=== PATIENT | female | born 1940 | race African-American/Black ===

== ENCOUNTER 2019-05-05 12:47 | Inpatient (IN) | payer MEDICARE, OTHER ==
[~2019-05-05] VITALS: Ht 165.1 cm; Wt 69.1 kg
--- NOTE | 2019-05-05 12:50 | NUR ---
ED Nurse Note: Patient brought in by ambulance DONAVAN from [facility] c/o left flank pain radiating to her left neck since yesterday patient is alert awake x4 ambulatory with assistance. patient reports hx of removing right kidney due to kidney cancer. ramon on her abdomen was removed last week and skin is healing without complication, no oozing, redness, swelling noted patient is breathing even and unlabored.
[2019-05-05] MEDS ORDERED: HYDROCHLOROTH12.5 MG ORAL (12:51)
[2019-05-05] MEDS ORDERED: PROTONIX40 MG ORAL (12:51)
[2019-05-05] MEDS ORDERED: AVAPRO300 MG ORAL (12:51)
[2019-05-05] MEDS ORDERED: PRAVASTATIN SOD20 M1 ORAL (12:51)
[2019-05-05] MEDS ORDERED: XALATAN2.5 ML BOTH EYES (12:51)
[2019-05-05] MEDS ORDERED: OXYTROL FOR WO1 EACH TD (12:51)
[2019-05-05 12:57] VITALS: BP 144/71
[2019-05-05 14:04] LABS: BASOPHILS % (AUTO) 0.8 % (0.0-2.0); HEMOGLOBIN 10.3 G/DL (12.0-16.0); LYMPHOCYTES % (AUTO) 26.4 % (20.0-45.0); MEAN CORPUSCULAR VOLUME 81 FL (80-99); NEUTROPHILS % (AUTO) 56.8 % (45.0-75.0); PLATELET COUNT 290 K/UL (150-450); RED BLOOD COUNT 4.06 M/UL (4.20-5.40); RED CELL DISTRIBUTION WIDTH 15.9 % (11.6-14.8); WHITE BLOOD COUNT 9.3 K/UL (4.8-10.8)
[2019-05-05 14:22] LABS: ANION GAP 12 mmol/L (5-15); BLOOD UREA NITROGEN 40 mg/dL (7-18); CALCIUM 9.9 MG/DL (8.5-10.1); CARBON DIOXIDE 24 MMOL/L (21-32); CHLORIDE 104 MMOL/L (98-107); CREATININE 2.3 MG/DL (0.55-1.30); POTASSIUM 4.1 MMOL/L (3.5-5.1); SODIUM 140 MMOL/L (136-145)
[2019-05-05 14:38] LABS: ALANINE AMINOTRANSFERASE 18 U/L (12-78); ALBUMIN 2.7 G/DL (3.4-5.0); ALBUMIN/GLOBULIN RATIO 0.5 (1.0-2.7); ALKALINE PHOSPHATASE 94 U/L (46-116); ASPARTATE AMINO TRANSFERASE 15 U/L (15-37); BILIRUBIN,TOTAL 0.3 MG/DL (0.2-1.0); CKMB < 0.5 NG/ML (0.0-3.6); CREATINE KINASE 12 U/L (26-308)
--- NOTE | 2019-05-05 15:54 | NUR ---
ED Nurse Note: called 2E and spoke with Kam, the nurse has not been assigned yet. will call back as soon as possible/
--- NOTE | 2019-05-05 15:58 | Emergency Room Report ---
History of Present Illness General Chief Complaint: Generalized Weakness Source: Patient, Medical Record Present Illness HPI 78-year-old female presents to ED for evaluation. Complaining of left-sided chest pain which started a few days ago. Pain is dull, 5 out of 10, nonradiating. Comes and goes. Denies shortness of breath. No other aggravating relieving factors. Denies any other associated symptoms Allergies: Coded Allergies: SULFA (SULFONAMIDE ANTIBIOTICS) (Unverified Allergy, Unknown, 05/05/19) Patient History Past Medical History: HTN, psych hx, other - breast cancer Past Surgical History: none Pertinent Family History: none Social History: Denies: smoking, alcohol use, drug use Now: No Immunizations: UTD Reviewed Nursing Documentation: PMH: Agreed; PSxH: Agreed Nursing Documentation-PMH Past Medical History: No History, Except For Hx Hypertension: Yes Hx Diabetes: Yes Hx Cancer: Yes - BREAST History Of Psychiatric Problem: Yes - ANXIETY Review of Systems All Other Systems: negative except mentioned in HPI Physical Exam Vital Signs Date Time Temp Pulse Resp B/P (MAP) Pulse Ox O2 Delivery O2 Flow Rate FiO2 05/05/19 12:43 76 16 114/65 (81) 96 Room Air 05/05/19 12:57 98.1 Sp02 EP Interpretation: reviewed, normal General Appearance: no apparent distress, alert, GCS 15, non-toxic Head: normocephalic, atraumatic Eyes: bilateral eye normal inspection, bilateral eye PERRL ENT: hearing grossly normal, normal pharynx, no angioedema, normal voice Neck: full range of motion, supple/symm/no masses Respiratory: lungs clear, normal breath sounds, speaking full sentences, other - L sided Cardiovascular #1: regular rate, rhythm, no edema Cardiovascular #2: 2+ carotid (R), 2+ carotid (L), 2+ radial (R), 2+ radial (L) , 2+ dorsalis pedis (R), 2+ dorsalis pedis (L) Gastrointestinal: normal bowel sounds, non tender, soft, non-distended, no guarding, no rebound Rectal: deferred Genitourinary: normal inspection, no CVA tenderness Musculoskeletal: back normal, gait/station normal, normal range of motion, non- tender Neurologic: alert, oriented x3, responsive, motor strength/tone normal, sensory intact, speech normal Psychiatric: judgement/insight normal, memory normal, mood/affect normal, no suicidal/homicidal ideation Reflexes: 3+ bicep (R), 3+ bicep (L), 3+ tricep (R), 3+ tricep (L), 3+ knee (R) , 3+ knee (L) Lymphatic: no adenopathy Medical Decision Making Diagnostic Impression: Primary Impression: ACS (acute coronary syndrome) ER Course Hospital Course 78-year-old male presents ED complaining of left-sided chest pain, Differential diagnoses include: DE/unstable angina, contusion, muscle strain, PTX, rib fracture Clinical course Patient placed on stretcher. on jacquard loom card changer. After initial history and physical I ordered labs, EKG, chest x-ray labs reviewed- no leukocyosis, hb/hct stable, electrolytes ok, trop negative EKG - NSR, no acute ischemic changes interpreted by me Chest x-ray- no acute process given comorbidities and age, concern for atypical chest pain. given aspirin Case discussed with Dr. No and he agreed to accept the patient to his service for further care and support I. I feel this is a highly complex case requiring extensive working including EKG/Rhythm strip, Xray/CT/US, Blood/urine lab work, repeat exams while in ED, and administration of strong opiates/narcotics for pain control, admission to hospital or close patient follow up. Diagnosis - ACS admitted to telemetry in serious condition Labs Test 05/05/19 13:40 White Blood Count 9.3 K/UL (4.8-10.8) Red Blood Count 4.06 M/UL (4.20-5.40) Hemoglobin 10.3 G/DL (12.0-16.0) Hematocrit 33.0 % (37.0-47.0) Mean Corpuscular Volume 81 FL (80-99) Mean Corpuscular Hemoglobin 25.3 PG (27.0-31.0) Mean Corpuscular Hemoglobin Concent 31.1 G/DL (32.0-36.0) Red Cell Distribution Width 15.9 % (11.6-14.8) Platelet Count 290 K/UL (150-450) Mean Platelet Volume 6.3 FL (6.5-10.1) Neutrophils (%) (Auto) 56.8 % (45.0-75.0) Lymphocytes (%) (Auto) 26.4 % (20.0-45.0) Monocytes (%) (Auto) 13.0 % (1.0-10.0) Eosinophils (%) (Auto) 3.0 % (0.0-3.0) Basophils (%) (Auto) 0.8 % (0.0-2.0) Sodium Level 140 MMOL/L (136-145) Potassium Level 4.1 MMOL/L (3.5-5.1) Chloride Level 104 MMOL/L (98-107) Carbon Dioxide Level 24 MMOL/L (21-32) Anion Gap 12 mmol/L (5-15) Blood Urea Nitrogen 40 mg/dL (7-18) Creatinine 2.3 MG/DL (0.55-1.30) Estimat Glomerular Filtration Rate mL/min (>60) Glucose Level 95 MG/DL (74-106) Calcium Level 9.9 MG/DL (8.5-10.1) Total Bilirubin 0.3 MG/DL (0.2-1.0) Aspartate Amino Transf (AST/SGOT) 15 U/L (15-37) Alanine Aminotransferase (ALT/SGPT) 18 U/L (12-78) Alkaline Phosphatase 94 U/L (46-116) Total Creatine Kinase 12 U/L (26-308) Creatine Kinase MB < 0.5 NG/ML (0.0-3.6) Creatine Kinase MB Relative Index 4.1 Troponin I 0.000 ng/mL (0.000-0.056) Pro-B-Type Natriuretic Peptide 419 pg/mL (0-125) Total Protein 8.5 G/DL (6.4-8.2) Albumin 2.7 G/DL (3.4-5.0) Globulin 5.8 g/dL Albumin/Globulin Ratio 0.5 (1.0-2.7) EKG Diagnostic Results Rate: normal Rhythm: NSR ST Segments: no acute changes ASA given to the pt in ED: Yes Rhythm Strip Diag. Results EP Interpretation: yes Rhythm: NSR, no PVC's, no ectopy Chest X-Ray Diagnostic Results Chest X-Ray Diagnostic Results : Chest X-Ray Ordered: Yes # of Views/Limited/Complete: 1 View Indication: Chest Pain EP Interpretation: Yes Interpretation: no consolidation, no effusion, no pneumothorax, no acute cardiopulmonary disease Impression: No acute disease Electronically Signed by: Electronically signed by Maximilian Burton MD Last Vital Signs Date Time Temp Pulse Resp B/P (MAP) Pulse Ox O2 Delivery O2 Flow Rate FiO2 05/05/19 13:38 84 16 Room Air 05/05/19 12:57 98.1 144/71 96 Status: improved Disposition: ADMITTED INPATIENT Condition: Serious Referrals: Italo Brito MD (PCP) Maximilian Burton MD May 05, 2019 15:58
--- NOTE | 2019-05-05 16:08 | NUR ---
ED Nurse Note: called TELE, Kam said Charge nurse Maya is not available at this time.
--- NOTE | 2019-05-05 16:09 | NUR ---
ED Nurse Note: called TELE, Kam said Charge nurse Maya is not available at this time. CN made aware
--- NOTE | 2019-05-05 16:15 | Diagnostic Imaging Report ---
Indication: Left rib pain Technique: One view of the chest, multiple views of the left ribs Comparison: none Findings: There is evidence of prior left mastectomy and left axillary node dissection. There is some consolidation and atelectasis at the left lung base. No pneumothorax. The right lung and pleural space are clear. There are bilateral cervical ribs incidentally noted. Impression: No acute bony trauma Left basilar atelectasis and consolidation Evidence of prior left mastectomy and node dissection Incidental finding bilateral cervical ribs
--- NOTE | 2019-05-05 16:35 | NUR ---
ED Nurse Note: called 2 E again, Maya will call back per Kam.
--- NOTE | 2019-05-05 16:55 | NUR ---
ED Nurse Note: report given to Maya Jiang RN is busy at the moment.
[2019-05-05 17:00] VITALS: BP 155/70
--- NOTE | 2019-05-05 17:00 | NUR ---
ED Nurse Note: patient is being transferred to 2E with all of her belongings report given to Maya
--- NOTE | 2019-05-05 18:16 | NUR ---
ADMITTING NOTES TO TELE: Pt is calm and cooperative, Ox4, denies pain, states she recently started to walk again due to nephrectomy, IV site patent and intact, call light at bedside, LOPEZ pt able to ambulate, Called and gave orders.
--- NOTE | 2019-05-05 19:18 | NUR ---
HAND-OFF: Report given to Missy Campos.
--- NOTE | 2019-05-05 19:50 | NUR ---
NURSE NOTES: Received pt from MARTIN Jiang. Pt awake, alert, and talkative. Bed in lowest position. Call light within reach. Purewick installed. Will continue to monitor.
[2019-05-05 20:00] VITALS: BP 130/70
--- NOTE | 2019-05-05 20:18 | NUR ---
NURSE NOTES: Called and spoke with Dr. Brito whether pt should be obs or inpatient. He reported to put the order for inpatient. Will input order and will continue to monitor.
[2019-05-05] MEDS: Latanoprost 0.005% Opth 2.5ml Soln BOTH EYES SCH (20:34)
[2019-05-06] VITALS: BP 120/53
[2019-05-06] MEDS: Lexiscan 0.4mg/5ml syringe IV ONE (03:45)
[2019-05-06 04:00] VITALS: BP 133/61
[2019-05-06] MEDS ORDERED: Lexiscan 0.4mg/5ml syringe IV PRN (06:30)
--- NOTE | 2019-05-06 07:41 | NUR ---
HAND-OFF: Report given to MARTIN Bashir. Pt stable.
[2019-05-06 07:48] LABS: CHOLESTEROL 211 MG/DL (< 200); HDL CHOLESTEROL 55 MG/DL (40-60); TRIGLYCERIDES 80 MG/DL (30-150)
[2019-05-06 08:00] VITALS: BP 115/54
[2019-05-06] MEDS: hydroCHLOROthiazide 12.5mg TAB ORAL SCH (09:00)
[2019-05-06] MEDS: Losartan 50mg tab ORAL SCH (09:00)
--- NOTE | 2019-05-06 10:10 | NUR ---
CASE MANAGEMENT: INITIAL REVIEW 78 YO F GARRETT FROM [facility] CC: GEN WEAKNESS PMHx: HTN. DM. BREAST CA. ANXIETY. SI:CP. ACS. T 98.1 HR 76 RR 16 B/P 114/65 SATS 96% ON RA BUN 40 CR 2.3 TOTAL CK 12 BNP 419 IS: XRAY RIBS Impression: No acute bony trauma PATIENT ADMITTED TO TELE 05/05/2019 @ 1750 DCP: PATIENT TO BE DISCHARGED TO HOME ONCE MEDICALLY CLEARED. PLAN OF CARE: CARDIO EVAL >>> STRESS TEST Addendum: 05/06/19 at 1256 by Hannah Morales INTERQUAL MET
[2019-05-06 12:00] VITALS: BP 133/56
--- NOTE | 2019-05-06 14:04 | NUR ---
nurse note s/p NM test, patient tolerated procedure. ok to resume diet per MD. Also received TO for PT eval as patient has rehab services at [facility].
--- NOTE | 2019-05-06 14:22 | Cardiology Report ---
APPROVED REPORT EXAM: Two-dimensional and M-mode echocardiogram with Doppler and color Doppler. INDICATION Chest Pain M-Mode DIMENSIONS LVDd3.6 (3.5-5.6cm)Left Atrium (MM)2.9 (1.6-4.0cm) PWd1.0 (0.7-1.1cm)Aortic Root3.4 (2.0-3.7cm) IVSs1.2 cmAortic Cusp Exc.2.1 (1.5-2.0cm) LVDs2.3 (2.5-4.0cm) PWs0.9 cm Normal left ventricular chamber size, systolic function . Mild septal hypokinesis. Left ventricular ejection fraction estimated to be 55-60 %. Mild left ventricular hypertrophy by 2-D. Anterior Echo-free space, may be due to pericardial fat or effusion. All other cardiac chamber sizes are within normal limits. Aortic valve calcification with normal cusp excursion . Mildly thickened mitral valve leaflets with normal excursion. Mild mitral annulus and aortic root calcification. Pulmonic valve not well visualized. IVC at normal size with physiologic collapse . A color flow and spectral Doppler study was performed and revealed: No aortic insufficiency . Mitral diastolic velocities suggest reduced left ventricular relaxation c/w mild LV diastolic dysfunction (Grade I ) Trace mitral regurgitation. Mild tricuspid regurgitation. Tricuspid systolic velocities suggests peak right ventricular systolic pressure of 26mmHg. Trace pulmonic regurgitation .
--- NOTE | 2019-05-06 15:46 | NUR ---
Myocardial Perfusion scan complete.
[2019-05-06 16:00] VITALS: BP 137/64
--- NOTE | 2019-05-06 16:59 | Diagnostic Imaging Report ---
Indication: chest pain Technique: The study was conducted under the supervision of a hull molder. lexiscan (regadenoson) infusion over 10 seconds followed by intravenous administration of 30.1 mCi of technetium 99m Myoview was performed. Three plane SPECT imaging of the heart was then performed. A resting study was performed as part of the one-day protocol with 11 mCi of technetium 99m myoview injected intravenously at that time. Three plane SPECT imaging of the heart was obtained. Comparison: None Clinical data: 1. Clinical response: Ischemic. Patient had left-sided chest pain during infusion. 2. Electrocardiographic response: Non ischemic Findings: The myocardial perfusion scan demonstrates no definite fixed or reversible perfusion defects. The LVEF is reported as 85% which is almost certainly an overestimation. IMPRESSION: No evidence of myocardial ischemia. Note: Refer to Cardiology notes regarding clinical symptomatology during pharmacologic effusion.
--- NOTE | 2019-05-06 19:15 | History and Physical Report ---
DATE OF ADMISSION: 05/05/2019 CHIEF COMPLAINT: Chest pain. HISTORY OF PRESENT ILLNESS: This is a 78-year-old female from [facility]. The patient was sent due to left-sided chest pain. The pain was 5/10, nonradiating, and quite atypical. Due to the fact that the patient is female and presentation can be atypical, the patient is admitted for further evaluation and management. PAST MEDICAL HISTORY: 1. Hypertensive cardiovascular disease. 2. History of breast cancer. 3. Psychiatric history. 4. Glaucoma. 5. Type 2 diabetes mellitus. MEDICATIONS: Hydrochlorothiazide, Avapro, Xalatan eye drops, oxybutynin, Protonix, pravastatin. ALLERGIES: Sulfonamides. FAMILY HISTORY: Unremarkable. SOCIAL HISTORY: She lives in a fpc. HABITS: She is a nonsmoker, nondrinker. There is no history of illicit drug abuse. REVIEW OF SYSTEMS: HEENT: Hearing and eyesight are normal. ENDOCRINE: No history of thyroid or adrenal problems. RESPIRATORY: She denies shortness of breath, cough, or hemoptysis. CARDIAC: Please refer to history of present illness. NEUROLOGIC: No history of stroke, syncope, or Parkinson disease. PHYSICAL EXAMINATION: GENERAL: This is an elderly female, who is in no acute distress. VITAL SIGNS: Blood pressure 133/56, pulse 73 regular, respirations 18, temperature 97.7. HEENT: The head is normocephalic and atraumatic. Pupils are equal, round, and reactive to light and accommodation consensually. NECK: Supple. Trachea midline. There was no lymphadenopathy or thyromegaly. LUNGS: Clear to auscultation and percussion. HEART: Regular rate and rhythm without rubs, murmurs, or gallops. ABDOMEN: Soft and nontender. Bowel sounds were active. EXTREMITIES: No clubbing, cyanosis, or edema. NEUROLOGICAL: She is alert and oriented x4. Cranial nerves II through XII intact. LABORATORY AND ANCILLARY DATA: CBC, hemoglobin 10.3, otherwise within normal limits. CMP, BUN 40, creatinine 2.3. Troponins 0 x2. 2D echo within normal limits. EKG, normal sinus rhythm. No signs of ischemia. Stress test was done, results are not available yet. ASSESSMENT: 1. Atypical chest pain, etiology unclear. 2. Hypertensive cardiovascular disease. 3. History of breast cancer. 4. Psychiatric history. 5. Glaucoma. 6. Type 2 diabetes mellitus. PLAN: Awaiting results of cardiac stress test. The patient was seen by Dr. Gallo in cardiology consult. Italo Brito M.D. DR: CHAIM JOB#: [id number] CC:
--- NOTE | 2019-05-06 19:45 | NUR ---
NURSE NOTES: Received pt and report from MARTIN iTpton. Observed pt resting in bed with both eyes open and watching television. Pt is A/Ox4. crate maker is in placed, IV site intact, asymptomatic, and patent. Bed is in the lowest position and locked. Call light within reach. No signs and symptoms of acute distress noted at this time. Will continue plan of care.
[2019-05-06 20:00] VITALS: BP 125/64
[2019-05-06] MEDS: Latanoprost 0.005% Opth 2.5ml Soln BOTH EYES SCH (20:57)
[2019-05-07] VITALS: BP 132/59
--- NOTE | 2019-05-07 02:30 | Progress Note ---
DATE: 05/06/2019 CARDIOLOGY PROGRESS NOTE SUBJECTIVE: The patient states she has not had any recurring chest pain since arriving yesterday and ruled out for myocardial infarction by serial cardiac enzymes. OBJECTIVE: VITAL SIGNS: Blood pressure stable range 125/64 to 133/56, heart rate 73 to 91, respiratory rate 18, and afebrile. LUNGS: Clear. CARDIAC: Regular. ABDOMEN: Soft. No edema. Myocardial perfusion scan revealed normal ejection fraction and no perfusion defects. IMPRESSION: 1. Low likelihood for flow-limiting coronary artery disease. 2. Hypertensive heart disease with diastolic dysfunction. 3. Compensated and controlled blood pressure. 4. Type 2 diabetes mellitus. PLAN: 1. Maintain anti-platelet therapy. 2. Continue current antihypertensive regimen. 3. No additional cardiovascular workup planned. 4. May discontinue telemetry. Giovanni Gallo M.D. DR: BRYON JOB#: [id number] CC:
--- NOTE | 2019-05-07 03:15 | Consultation ---
DATE OF CONSULTATION: 05/05/2019 CARDIOLOGY CONSULTATION CONSULTING PHYSICIAN: Giovanni Gallo M.D. REQUESTING PHYSICIAN: Italo Brito M.D. REASON FOR CONSULTATION: Chest pain, suggesting acute coronary syndrome. HISTORY OF PRESENT ILLNESS: This is a 78-year-old female. She presented to the emergency room earlier today complaining of left-sided chest pain that has been going on for several days. She describes it as dull, nonradiating, and intermittent with no apparent provoking factors that she can describe. She denies any associated symptoms. PAST MEDICAL HISTORY: Notable for hypertension, type 2 diabetes mellitus, breast cancer with mastectomy, and anxiety disorder. ALLERGIES: Sulfa. MEDICATIONS: Prior to admission, reviewed and reconciled. FAMILY HISTORY: Noncontributory. SOCIAL HISTORY: Negative for smoking, alcohol, or substance abuse. REVIEW OF SYSTEMS: No fevers or chills. No recent upper respiratory infection. No history of endocarditis, rheumatic heart disease, or irregular heartbeat. No history of seizure or stroke. Unknown cholesterol levels. No history of thyroid disorder. No recent change in bowel habits. No frequency, dysuria, or incontinence. PHYSICAL EXAMINATION: VITAL SIGNS: Blood pressure 114/65, pulse 76, respiratory rate 16, and afebrile. HEENT: Normocephalic and atraumatic. Conjunctivae are pink. Oropharynx clear. NECK: Supple. Jugular venous pressure normal. LUNGS: Clear. CHEST WALL: No adenopathy or breast masses. CARDIAC: Regular rhythm and rate. Normal S1 and S2 with a fourth heart sound. ABDOMEN: Soft and nontender. EXTREMITIES: No edema. NEUROLOGIC: Reveals no focal deficits. LABORATORY DATA: An echocardiogram reveals normal ejection fraction, mild tricuspid regurgitation with a diastolic relaxation abnormality. On admission, EKG revealed sinus rhythm, nonspecific ST-T changes. Chest x-ray with no acute process. CK is 12. Troponin is 0. Natriuretic peptide is 419. IMPRESSION: This 78-year-old female with multiple risk factors for coronary artery disease presents to the hospital with several days of recurring chest pressure with features suggestive of acute coronary insufficiency. Other problems include hypertension and a slightly elevated natriuretic peptide assay likely consistent with a chronic diastolic dysfunction. PLAN: 1. Recommend cardiac monitoring. 2. Antiplatelet therapy with aspirin. 3. Serial cardiac enzymes. 4. Lipid panel. 5. Noninvasive assessment of coronary flow reserve. Giovanni Gallo M.D. DR: KIERSTEN JOB#: [id number] CC:
[2019-05-07 04:00] VITALS: BP 133/62
[2019-05-07 06:39] LABS: ALANINE AMINOTRANSFERASE 15 U/L (12-78); ALBUMIN 2.6 G/DL (3.4-5.0); ALBUMIN/GLOBULIN RATIO 0.5 (1.0-2.7); ALKALINE PHOSPHATASE 86 U/L (46-116); ANION GAP 11 mmol/L (5-15); ASPARTATE AMINO TRANSFERASE 15 U/L (15-37); BILIRUBIN,TOTAL 0.3 MG/DL (0.2-1.0); BLOOD UREA NITROGEN 35 mg/dL (7-18); CALCIUM 9.4 MG/DL (8.5-10.1); CARBON DIOXIDE 26 MMOL/L (21-32); CHLORIDE 102 MMOL/L (98-107); CREATININE 2.1 MG/DL (0.55-1.30); POTASSIUM 3.7 MMOL/L (3.5-5.1); SODIUM 139 MMOL/L (136-145)
[2019-05-07 06:48] LABS: BASOPHILS % (AUTO) 0.8 % (0.0-2.0); EOSINOPHILS % (AUTO) 4.1 % (0.0-3.0); HEMATOCRIT 31.8 % (37.0-47.0); HEMOGLOBIN 10.1 G/DL (12.0-16.0); LYMPHOCYTES % (AUTO) 30.3 % (20.0-45.0); MEAN CORPUSCULAR VOLUME 81 FL (80-99); MONOCYTES % (AUTO) 12.3 % (1.0-10.0); NEUTROPHILS % (AUTO) 52.6 % (45.0-75.0); PLATELET COUNT 311 K/UL (150-450); RED BLOOD COUNT 3.93 M/UL (4.20-5.40); RED CELL DISTRIBUTION WIDTH 15.4 % (11.6-14.8); WHITE BLOOD COUNT 6.7 K/UL (4.8-10.8)
--- NOTE | 2019-05-07 07:38 | NUR ---
HAND-OFF: Report given to MARTIN Edmonds.
--- NOTE | 2019-05-07 07:48 | NUR ---
NURSE NOTES: Nurse report given by My, RN. Patient is awake and eating breakfast at bedside. Patient's comfortable, no sign of distress or discomfort. Patient denied pain. Bed at lowest position and break engaged, call light within reach. IV SL is flushed well, patent and no sign of redness or tenderness. Patient requested bedpan for her. Will continue to monitor.
[2019-05-07 08:00] VITALS: BP 116/58
[2019-05-07] MEDS: Losartan 50mg tab ORAL SCH (08:18)
[2019-05-07] MEDS: hydroCHLOROthiazide 12.5mg TAB ORAL SCH (08:18)
--- NOTE | 2019-05-07 08:35 | NUR ---
NURSE NOTES Received patient into room 415 bed 1 from Telemetry patient Respirations unlabored,is awake and alert and oriented. IV saline lock right forearm intact. No concerns at this time. Patient has her personal belongings. Call light within reach.
--- NOTE | 2019-05-07 08:39 | NUR ---
HAND-OFF: Report given to MARTIN Miller. Patient was transfered in stable condition and safely to . Patient's belongings verified. Patient's transfered with only clothing and shoes. desk monitor removed. Plan of care endorsed and orders transferred.
[2019-05-07 09:00] VITALS: BP_SYST 117; BP_SYST 122; BP_DIAS 69; BP_DIAS 74
[2019-05-07] MEDS ORDERED: Aspirin EC 81mg tab ORAL SCH ×2 (09:00)
[2019-05-07] MEDS ORDERED: hydroCHLOROthiazide 12.5mg TAB ORAL SCH (09:00)
[2019-05-07] MEDS ORDERED: Losartan 50mg tab ORAL SCH (09:00)
[2019-05-07 12:00] VITALS: BP 122/74
--- NOTE | 2019-05-07 14:57 | General Progress Note ---
Assessment/Plan Assessment/Plan: Atypical CP + nuclear stress test negative. DC to SNF. Subjective Allergies: Coded Allergies: SULFA (SULFONAMIDE ANTIBIOTICS) (Unverified Allergy, Unknown, 05/05/19) Subjective No new c/o Objective Last 24 Hour Vital Signs Date Time Temp Pulse Resp B/P (MAP) Pulse Ox O2 Delivery O2 Flow Rate FiO2 05/07/19 12:00 97.7 90 20 122/74 (90) 96 05/07/19 09:00 Room Air 05/07/19 09:00 97.3 110 20 117/69 (85) 96 05/07/19 08:18 116/58 05/07/19 08:00 98.0 92 14 116/58 (77) 97 05/07/19 04:00 74 05/07/19 04:00 97.5 74 20 133/62 (85) 96 05/07/19 00:00 98.2 76 20 132/59 (83) 96 05/07/19 00:00 73 05/06/19 21:00 Room Air 05/06/19 20:00 81 05/06/19 20:00 98.5 83 20 125/64 (84) 96 05/06/19 16:00 98.7 91 18 137/64 (88) 95 91 05/06/19 16:00 98 Intake and Output 05/06/19 05/07/19 19:00 07:00 Intake Total 240 ml Output Total 900 ml Balance -660 ml Intake Oral 240 ml Output Urine Total 900 ml # Voids 3 # Bowel Movements 1 Laboratory Tests 05/07/19 05:45: White Blood Count 6.7, Red Blood Count 3.93L, Hemoglobin 10.1L, Hematocrit 31.8L , Mean Corpuscular Volume 81, Mean Corpuscular Hemoglobin 25.7L, Mean Corpuscular Hemoglobin Concent 31.7L, Red Cell Distribution Width 15.4H, Platelet Count 311, Mean Platelet Volume 5.9L, Neutrophils (%) (Auto) 52.6, Lymphocytes (%) (Auto) 30.3, Monocytes (%) (Auto) 12.3H, Eosinophils (%) (Auto) 4.1H, Basophils (%) (Auto) 0.8, Sodium Level 139, Potassium Level 3.7, Chloride Level 102, Carbon Dioxide Level 26, Anion Gap 11, Blood Urea Nitrogen 35H, Creatinine 2.1H, Estimat Glomerular Filtration Rate , Glucose Level 89, Calcium Level 9.4, Total Bilirubin 0.3, Aspartate Amino Transf (AST/SGOT) 15, Alanine Aminotransferase (ALT/SGPT) 15, Alkaline Phosphatase 86, Total Protein 8.0, Albumin 2.6L, Globulin 5.4, Albumin/Globulin Ratio 0.5L Height (Feet): 5 Height (Inches): 5.00 Weight (Pounds): 152 Objective CV RR Lungs CTA Abd SNT. BS + E No CCE Italo Brito MD May 07, 2019 14:57
--- NOTE | 2019-05-07 14:58 | NUR ---
P.T Note: P.T evaluation completed and tx initiated. Please refer to P.T evaluation for current functional status. Pt is alert, O x 4 ,pleasant and cooperative. Pt denied c/o pain but reports generalized weakness affecting her transfer mobility and gait/ambulation ability. Pt is independent with bed mobilities, CGA X 1 for transfers and gait/ambulation activities using the FWW. Skilled P.T service is warranted to improve her strength, endurance and balance to increase her functional mobility independence and safety. Recommend DC to prior living arrangement with continued P.T. Pt is cleared for OOB activities with nursing assist.
--- NOTE | 2019-05-07 15:37 | NUR ---
DISCHARGE DISPOSITION: PLEASE READ PATIENT TO BE DISCHARGED TO [address] ROOM [address] T" [phone]>>> CALL FOR REPORT [facility] ETA 1708 NO FAMILY TO NOTIFY SKILLED TRANSFER REPORT PROVIDED
--- NOTE | 2019-05-07 15:55 | Cardiology Report ---
APPROVED REPORT EKG Measurement Heart [id number] Sinus rhythm with 1st degree AV block Otherwise normal ECG
[2019-05-07 16:00] VITALS: BP 108/61
--- NOTE | 2019-05-07 16:12 | Cardiology Report ---
APPROVED REPORT EKG Measurement Heart [id number] Normal sinus rhythm Normal ECG
--- NOTE | 2019-05-07 18:16 | NUR ---
NURSE NOTES: Report given to Saige MOBLEY at [facility].
--- NOTE | 2019-05-07 18:45 | NUR ---
NURSE NOTES: Patient discharge to [facility],patient IV removed,hospital ID band removed,patient has personal belonging,family member at bedside.[facility] will transport patient back to facility.
[2019-05-07] MEDS ORDERED: Latanoprost 0.005% Opth 2.5ml Soln BOTH EYES SCH (21:00)
--- NOTE | 2019-05-08 | Progress Note ---
DATE: 05/07/2019 CARDIOLOGY PROGRESS NOTE SUBJECTIVE: The patient has not had any more chest pain and myocardial perfusion scan from yesterday was negative for any flow-limiting coronary disease as discussed in my note yesterday. OBJECTIVE: VITAL SIGNS: Blood pressure 117/69, heart rate 74 to 110, respiratory rate 14 to 20, and afebrile. LUNGS: Clear. CARDIAC: Regular rhythm and rate. Normal S1, S2. ABDOMEN: Soft. EXTREMITIES: No edema. LABORATORY DATA: White count 6.7 and hemoglobin 10.1. BUN 35 and creatinine 2.1. Potassium 3.7. IMPRESSION: 1. Hypertensive heart and kidney disease. 2. Chronic diastolic congestive heart failure. 3. Noncardiac chest pain. 4. Moderate protein-calorie malnutrition. 5. Favorable lipid panel with HDL above 50. PLAN: 1. Stable for outpatient followup. 2. Continue anti-platelet therapy. 3. Consider discontinuing thiazide and monitoring renal function. 4. No additional inpatient cardiovascular workup presently indicated. 5. Maintain low-dose statin drug. Giovanni Gallo M.D. DR: YEIMY JOB#: [id number] CC:
--- NOTE | 2019-05-08 08:31 | Discharge Summary ---
Discharge Summary Discharge Summary _ DATE OF ADMISSION: 05/05/2019 DATE OF DISCHARGE: 05/07/2019 DISCHARGED BY: Dr. Italo Brito CONSULTANTS: Dr. Giovanni Gallo BRIEF HOSPITAL COURSE: Patient is a 78-year-old female from [facility]. The patient was sent to the hospital due to left-sided chest pain. Pain was 5/10, nonradiating and quite atypical. She has medical history significant for hypertensive cardiovascular disease, history of breast cancer, psychiatric history, glaucoma, and type 2 diabetes mellitus. Due to her risk factors, presentation can be atypical, she was then admitted for further evaluation and management. On evaluation at the ED, vital signs were stable. Blood work did not show any leukocytosis. Troponin was negative. EKG was in normal sinus rhythm. Chest x- ray did not show any acute process. She was given aspirin. She was then admitted to telemetry. She was hooked on the monitor. Bookkeeper Receptionist was consulted. Patient presented with multiple risk factors for coronary artery disease and several days of recurring chest pressure with features suggestive of acute coronary insufficiency. She was given antiplatelet therapy with aspirin. Lipid panel was checked. LDL was 125, HDL 55. She was given pravastatin 20 mg nightly. Cardiac enzymes were negative. Echocardiogram done showed EF 55 to 60%. She underwent myocardial perfusion scan that revealed normal ejection fraction and no perfusion defects. There was low likelihood for flow-limiting coronary artery disease. There was no additional cardiovascular work-up needed. She was then cleared for discharge back to [facility]. FINAL DIAGNOSES: Atypical chest pain with negative nuclear stress test Hypertensive heart and kidney disease Chronic diastolic congestive heart failure Moderate protein calorie malnutrition DISPOSITION: Patient was discharged home. DISCHARGE MEDICATIONS: Refer to Discharge Medication List. DISCHARGE INSTRUCTIONS: Follow-up in a week. I have been assigned to complete a discharge summary on this account, I was not involved with the patient's management.--LUBA Khanna Jacqueline Robles NP May 08, 2019 08:31
[2019-05-08] MEDS ORDERED: Aspirin EC 81mg tab ORAL SCH (09:00)
[2019-05-08] MEDS ORDERED: Losartan 50mg tab ORAL SCH (09:00)
[2019-05-08] MEDS ORDERED: hydroCHLOROthiazide 12.5mg TAB ORAL SCH (09:00)
== END 2019-05-07 18:55 | disposition home or self-care (01) | DRG 313 ==
LOC: EDBD 12:47 → EMR 14:00 → 2E 14:24 → EDBEDREQ 15:47 → OBSVTOIN 19:26 → 4E 05-07 09:00
DX: R07.89 Other chest pain (principal); I50.32 Chronic diastolic (congestive) heart failure; I13.0 Hypertensive heart and chronic kidney disease with heart failure and stage 1 through stage 4 chronic kidney disease, or unspecified chronic kidney disease; E44.0 Moderate protein-calorie malnutrition; Z85.3 Personal history of malignant neoplasm of breast; H40.9 Unspecified glaucoma; E11.9 Type 2 diabetes mellitus without complications; N18.9 Chronic kidney disease, unspecified; Z90.10 Acquired absence of unspecified breast and nipple; Z88.2 Allergy status to sulfonamides
CPT/HCPCS: 36415; 78452; 80053; 80061; 82550; 82553; 83880; 84484; 85025; 87081; 93005; 93017; 93306; 99285; J2785